=== PATIENT | female | born 1975 | race Caucasian/White ===

== ENCOUNTER 2018-01-26 21:51 | Emergency (ER) | payer OTHER | END 2018-01-26 22:47 | disposition home or self-care (01) | LOC: SCSER 21:51 | DX: T63.2X1A Toxic effect of venom of scorpion, accidental (unintentional), initial encounter (principal); G43.909 Migraine, unspecified, not intractable, without status migrainosus; F41.9 Anxiety disorder, unspecified; F32.9 Major depressive disorder, single episode, unspecified; Z79.899 Other long term (current) drug therapy | CPT/HCPCS: 99283 ==

== ENCOUNTER 2019-03-08 07:34 | Outpatient (CLI) | payer OTHER ==
[2019-03-08 16:59] LABS: Hemoglobin 13.1 g/dL (12.0-16.0); Mean Corpuscular HGB CONC 32.4 g/dL (32.0-36.0); Mean Corpuscular Hemoglobin 28.2 pg (27.0-31.0); Mean Corpuscular Volume 86.9 fL (78.0-98.0); Mean Platelet Volume 9.8 fL (7.4-10.4); Platelet Count 210 thou/uL (130-400); Red Blood Cell (RBC) Count 4.65 mill/uL (4.20-5.40); White Blood Cell (WBC) Count 8.6 thou/uL (4.8-10.8)
== END 2019-03-08 07:35 | disposition home or self-care (01) ==
LOC: LABBT 07:34
PROVIDERS: ATTEND Student in an Organized Health Care Education/Training Program
DX: Z01.812 Encounter for preprocedural laboratory examination (principal); N93.9 Abnormal uterine and vaginal bleeding, unspecified
CPT/HCPCS: 85027; 86850; 86900; 86901

== ENCOUNTER 2019-03-11 05:47 | Day surgery (SDC) | payer OTHER ==
[2019-03-08 17:10] VITALS: BMI 23.6
[2019-03-11] MEDS ORDERED: Fentanyl 100 MCG/2 ML VIAL ONE ×2 (06:09→10:40)
[2019-03-11] MEDS ORDERED: HYDROmorphone 0.5 MG/0.5 ML SYRINGE ONE ×2 (06:09→07:21)
[2019-03-11] MEDS ORDERED: Midazolam HCl 2 mg/2 ml Vial ONE (06:09)
[2019-03-11] MEDS ORDERED: Lidocaine 2% Jelly 5 ML TUBE ONE (06:09)
[2019-03-11] MEDS ORDERED: Gabapentin 300 MG CAP ONE (06:16)
[2019-03-11] MEDS ORDERED: Famotidine/PF 20 mg/2ml Vial ONE (06:16)
[2019-03-11] MEDS ORDERED: Bupivacaine HCl 0.5%/Epinephrine 1:200,000/PF 30 ml Vial ONE (07:00)
[2019-03-11 07:05] LABS: BHCG - Serum Negative (NEGATIVE); Pregs Control Background? CLEAR/WHITE (CLR/WHITE); Pregs Control Bar Appear? YES (CONTROL BAR)
[2019-03-11] MEDS ORDERED: Bisacodyl 10 MG SUPP PR PRN (09:44)
[2019-03-11] MEDS ORDERED: Promethazine HCl 25 MG/ML VIAL IM PRN ×2 (09:44→09:58)
[2019-03-11] MEDS ORDERED: traMADol HCl 50 MG TAB PO PRN ×2 (09:44)
[2019-03-11] MEDS ORDERED: Simethicone Chewable 80 MG TAB PO PRN (09:44)
[2019-03-11] MEDS ORDERED: Zolpidem Tartrate 5 MG TAB PO PRN (09:44)
[2019-03-11] MEDS ORDERED: Morphine 4 MG/ML VIAL SLOW IVP PRN (09:44)
[2019-03-11] MEDS ORDERED: diphenhydrAMINE 25 MG CAP PO PRN (09:44)
[2019-03-11] MEDS ORDERED: Rizatriptan Benzoate 10 MG MLT TAB PO PRN (09:46)
[2019-03-11] MEDS ORDERED: ALPRAZolam 0.25 MG TAB PO PRN (09:46)
[2019-03-11] MEDS ORDERED: clonazePAM 0.5 MG TAB PO PRN (09:46)
[2019-03-11] MEDS ORDERED: Ondansetron HCl/PF 4 MG/2 ML Vial IVP PRN (09:58)
[2019-03-11] MEDS ORDERED: Promethazine HCl 25 MG/ML VIAL SLOW IVP PRN (09:58)
[2019-03-11] MEDS ORDERED: Ropivacaine 0.2% 550 ML 550 ML NERVE BLCK SCH (10:15)
[2019-03-11] MEDS ORDERED: PHENYLEPHRINE-NS 100 MCG/ML 10 ML SYRINGE ONE (12:28)
[2019-03-11] MEDS ORDERED: Glycopyrrolate 0.2 MG/ML 5 ML SYRINGE ONE (12:28)
[2019-03-11] MEDS ORDERED: Ondansetron PF 4 MG/2 ML Vial ONE (12:28)
[2019-03-11] MEDS ORDERED: Rocuronium Bromide 10 MG/ML (10ML VIAL) ONE (12:28)
[2019-03-11] MEDS ORDERED: ePHEDrine 50 MG/ML VIAL ONE (12:28)
[2019-03-11] MEDS ORDERED: Dexamethasone 20 MG/5 ML VIAL ONE (12:28)
[2019-03-11] MEDS ORDERED: Lidocaine 1% PF 5 ML VIAL ONE (12:28)
[2019-03-11] MEDS ORDERED: PROPOFOL 200 MG/20 ML VIAL ONE (12:28)
[2019-03-11] MEDS: Ketorolac Tromethamine 30 MG/ML VIAL IVP SCH ×2 (12:35→18:32)
[2019-03-11] MEDS: Sodium Chloride 0.9% 1,000 ML IV SCH ×2 (12:36→22:11)
[2019-03-11] MEDS: Ondansetron PF 4 MG/2 ML Vial IVP PRN ×2 (13:15→18:31)
[2019-03-11] MEDS ORDERED: Propranolol 10 MG TAB PO SCH (21:00)
[2019-03-11] MEDS ORDERED: Topiramate 25 MG TAB PO SCH (21:00)
[2019-03-11] MEDS: Dicyclomine 10 MG CAP PO SCH (22:07)
[2019-03-11] MEDS ORDERED: Propranolol HCl 20 MG TAB PO SCH (22:15)
[2019-03-11] MEDS: Propranolol HCl 20 MG TAB PO SCH (22:17)
[2019-03-12] MEDS: Ketorolac Tromethamine 30 MG/ML VIAL IVP SCH (00:39)
[2019-03-12] MEDS: Ondansetron PF 4 MG/2 ML Vial IVP PRN (00:40)
[2019-03-12] MEDS: Sodium Chloride 0.9% 1,000 ML IV SCH ×2 (03:24→10:38)
[2019-03-12] MEDS ORDERED: Ibuprofen 800 MG TAB PO SCH (06:00)
[2019-03-12 07:37] LABS: Hemoglobin 11.7 g/dL (12.0-16.0); Mean Corpuscular HGB CONC 32.4 g/dL (32.0-36.0); Mean Corpuscular Hemoglobin 28.7 pg (27.0-31.0); Mean Corpuscular Volume 88.7 fL (78.0-98.0); Mean Platelet Volume 9.7 fL (7.4-10.4); Platelet Count 155 thou/uL (130-400); RBC Distribution Width 13.1 % (11.5-14.5); Red Blood Cell (RBC) Count 4.06 mill/uL (4.20-5.40); White Blood Cell (WBC) Count 14.6 thou/uL (4.8-10.8)
[2019-03-12 08:20] VITALS: BP 83/46; TEMP 98.9
[2019-03-12] MEDS ORDERED: Topiramate 25 MG TAB PO SCH ×2 (09:00)
[2019-03-12] MEDS ORDERED: Loratadine 10 MG TAB PO SCH (09:00)
--- NOTE | 2019-03-12 09:23 | PDOC.EVN ---
Event Note - Event Note Event Note: POD1 S: No complaints, pain controlled, debo po, +flatus, no vag bleeding. Ambulated to bathroom, voiding. O: Pulse 49, BP 80/40, afebrile, resp wnl NAD unlabored respirations abd s/appttp/nd/BS + ext No e/c/c Hgb 11.7 A) POD1 s/p RATLH, bilat salpingectomy Doing well met all milestones Recheck BP and pulse prior to propranol, pt takes for cluster [facility], need to cont regimen so as not to have breakthrough migraine, will need to fu with [facility] dr regarding bradycardia and hypotension Discussed postop care at home, pain meds called out. DC home FU 2 wk
[2019-03-12] MEDS: Propranolol HCl 20 MG TAB PO SCH (09:47)
[2019-03-12] MEDS: Dicyclomine 10 MG CAP PO SCH (09:47)
--- NOTE | 2019-03-13 10:41 | OP ---
DATE OF PROCEDURE: 03/11/2019 PREOPERATIVE DIAGNOSIS: Abnormal uterine bleeding. POSTOPERATIVE DIAGNOSIS: Abnormal uterine bleeding. PROCEDURE PERFORMED: Robotic-assisted total laparoscopic hysterectomy and bilateral salpingectomy. ANESTHESIA: General endotracheal. RADIO COMMUNICATIONS MECHANICIAN: Medina Avery PA-C ESTIMATED BLOOD LOSS: 50 mL. INTRAVENOUS FLUID: 1500 mL crystalloid. URINE OUTPUT: 300 mL clear urine. COMPLICATIONS: None. DRAINS: [place] catheter. PATHOLOGY: Uterus, cervix, bilateral fallopian tubes. FINDINGS: On exam under anesthesia, a mobile 12-week size uterus. Normal-appearing cervix and vagina. Uterus was globally enlarged. The fallopian tubes and ovaries were normal bilaterally. The remainder of pelvis was within normal limits. DESCRIPTION OF PROCEDURE: The patient was taken to the operating room, where general anesthesia was obtained without difficulty. The patient was prepped and draped in a sterile fashion in a dorsal lithotomy position. A Newman catheter was placed in the bladder. The speculum was placed in the vagina. The anterior lip of the cervix was grasped with a single-tooth tenaculum, and the cervix was then dilated with Mac dilators and the uterus sounded to 11 cm. The JORDAN manipulator was assembled with a 10 cm tip and a 4 cm colpotomizer ring. The manipulator was inserted into the uterus. Colpotomizer ring was advanced, fit snugly around the cervix. Instruments were removed out of the vagina. Legs were placed in low lithotomy. Attention was turned to the abdomen. 0.5% Marcaine with epinephrine was infiltrated into the umbilicus and a 12 mm skin incision was made. The Veress needle was passed into the abdomen noting an opening pressure of 2 mmHg. Pneumoperitoneum was obtained without difficulty. Veress needle was removed. The 12 mm trocar was advanced into the abdomen and confirmed placement with robotic camera. Steep Trendelenburg was obtained. The above findings were noted. The right and left lower quadrant 8 mm robotic trocars were inserted under direct visualization after infiltrating with anesthetic and making a skin incision. A right upper quadrant 11 mm operator assistant i cementing port was also placed under direct visualization after infiltrating with anesthetic and making skin incision. The robot was then docked. The right robotic arm contained monopolar scissors, left robotic arm contained a fenestrated bipolar, and needles were inserted into the abdomen under direct visualization. The surgeon console then took control. The left fallopian tube was grasped and elevated. The mesosalpinx was sequentially cauterized with the fenestrated and incised with the scissors from lateral to medial. Once the medial fallopian tube was met, this was clamped across, cauterized, transected and removed out of the abdomen. The utero-ovarian was cauterized multiple times as well as the round ligament in the midportion. These areas were then incised with the scissors, and this opened up the broad ligament. The posterior leaf of the broad ligament was incised down to the level of the uterosacral after sharply anteverting the uterus. The retroperitoneum was dissected off the lateral uterine pedicle bluntly with the fenestrated with a sweeping motion. Small anastomotic vessels were cauterized. The ureter was noted in the pelvic sidewall laterally, and special attention was made to push the retroperitoneum off the uterine pedicle to allow the ureter to fall away. The anterior leaf of the broad ligament was incised and bladder flap was created incising the vesicouterine peritoneum while tenting up with the fenestrated to ensure a clear window. The adventitial fibers of the bladder flap were then dissected down distally while elevating the bladder flap and the pubocervical fascia was scored and blunt dissection was also performed until this fascia was well visible and the bladder flap was taken down below the level of the colpotomizer ring. Attention was turned to the right side, where the right fallopian tube was grasped and elevated. The mesosalpinx was sequentially cauterized and incised. As performed on the previous side, the fallopian tube was then transected and removed out of the abdomen. The utero-ovarian was cauterized multiple times as well as the round ligament in the midportion. The incisions were performed of these areas and met in the middle completely transecting the upper portion of the supporting structures to the uterus. The posterior leaf of the broad ligament was incised down to the uterosacral and again it is performed on the contralateral side. Retroperitoneal fibers were bluntly dissected down with a sweeping motion of the fenestrated and the ureter was identified in the retroperitoneum laterally in the pelvic sidewall on the medial leaf of the broad ligament. The anterior broad ligament was incised as well, and the vessels were adequately skeletonized on the right side. The uterine vessels were cauterized above the level of the colpotomizer ring multiple times. The vessels were also cauterized on the right side at that time. Incision was made of the uterine vessels on the right side, achieving hemostasis with the fenestrated and the colpotomy was began on the left side incising laterally and then through the cardinal ligament. This was taken around posteriorly, and then, to the right side, the vessels were incised and the vessels were dissected off the vaginal apex to allow for less tension with closure potentially on the ureter and the colpotomy was completed anteriorly. At that point, the uterus was then pulled into the vagina and hemostasis was achieved of the vaginal cuff with the fenestrated and irrigation was performed of the pelvis. The bladder was backfilled, and noted to have no inadvertent injury. The ureters were noted bilaterally to be vermiculating in the pelvic sidewall, and the scissors were traded out for the needle driver examiner. The vaginal cuff was closed with a 2-0 Stratafix barbed suture in a running fashion and run back for a second layer with excellent reapproximation and hemostasis incorporating vaginal mucosa and posterior peritoneum in each bite. The needle was then cut and removed out of the abdomen and irrigation was again performed of the pelvis as well as low pressure check and hemostasis was noted to be excellent. At that time, Erin powder was placed over the pedicles, vaginal cuff, and hemostasis was noted. At that time, the ON-Q 5 cm catheter was thread into the mid lower abdomen and this was placed in the pelvis. A test dose was performed and successful. The needle was removed out of the abdomen and the catheter was secured in the pelvis underneath the ovaries. At that time, all instruments were removed out of the abdomen, and the robot was undocked. Pneumoperitoneum was released and the fascia of the umbilical port was closed with a 0 Vicryl in a [id number] fashion. The skin was closed with a 4-0 Monocryl in a subcuticular fashion and Dermabond was applied. The vagina was checked and hemostasis was noted to be excellent. All instruments removed out of the vagina. The patient tolerated the procedure well. Sponge, lap, and needle counts were correct x2. The patient was taken to recovery room in stable condition. The patient received Ancef 2 g prior to the procedure. Job ID: [id number]
== END 2019-03-12 11:55 | disposition home or self-care (01) ==
LOC: SDC 05:47 → 3SE 11:42 → SDC 03-12 11:55
PROVIDERS: ATTEND Student in an Organized Health Care Education/Training Program
PROC: 0UT74ZZ Resection of Bilateral Fallopian Tubes, Percutaneous Endoscopic Approach (ICD-10-PCS; principal; 2019-03-12)
PROC: 0UT94ZZ Resection of Uterus, Percutaneous Endoscopic Approach (ICD-10-PCS; principal; 2019-03-12)
DX: N93.9 Abnormal uterine and vaginal bleeding, unspecified (principal); N80.0 Endometriosis of uterus; N72 Inflammatory disease of cervix uteri; Z79.899 Other long term (current) drug therapy; Z88.2 Allergy status to sulfonamides; Z88.5 Allergy status to narcotic agent; Z88.8 Allergy status to other drugs, medicaments and biological substances
CPT/HCPCS: 36415; 84703; 85027; 88307; A4306; J0131; J0670; J0690; J1100; J1170; J1885; J2001; J2250; J2405; J2550; J2704; J2795; J3010; J3490; S0028